=== PATIENT | female | born 1935 | race African-American/Black ===

== ENCOUNTER 2017-05-09 13:38 | Emergency (ER) | payer OTHER ==
[~2017-05-09] VITALS: Ht 165.1 cm; Wt 60.0 kg
[~2017-05-09 13:38] MED LIST: ASPI-785; IBUP100T20; METF500T
[2017-05-09] MEDS ORDERED: ACETAMINOPHEN 500MG TABLET PO ONE (18:45)
[2017-05-09 21:03] VITALS: BP 130/84
== END 2017-05-09 21:08 | disposition home or self-care (01) ==
LOC: ER 13:38
DX: M25.512 Pain in left shoulder (principal); M25.552 Pain in left hip; E11.9 Type 2 diabetes mellitus without complications; M47.896 Other spondylosis, lumbar region; I10 Essential (primary) hypertension; E78.00 Pure hypercholesterolemia, unspecified; Z88.0 Allergy status to penicillin; Z88.6 Allergy status to analgesic agent; V49.49XA Driver injured in collision with other motor vehicles in traffic accident, initial encounter; Y93.89 Activity, other specified; Y92.488 Other paved roadways as the place of occurrence of the external cause
CPT/HCPCS: 72100; 73030; 73502; 99284

== ENCOUNTER 2017-11-25 17:31 | Emergency (ER) | payer OTHER ==
[~2017-11-25] VITALS: Ht 160 cm; Wt 70.0 kg
[2017-11-25 17:42] VITALS: BP 143/84
[2017-11-25] MEDS ORDERED: ACETAMINOPHEN 325MG TABLET PO ONE (17:45)
== END 2017-11-25 22:00 | disposition left against medical advice (07) ==
LOC: ER 17:31
DX: M25.522 Pain in left elbow (principal); I10 Essential (primary) hypertension; E11.9 Type 2 diabetes mellitus without complications; Z79.82 Long term (current) use of aspirin; Z88.0 Allergy status to penicillin; Z88.6 Allergy status to analgesic agent; W07.XXXA Fall from chair, initial encounter; Y93.89 Activity, other specified; Y99.8 Other external cause status; Y92.89 Other specified places as the place of occurrence of the external cause; Z98.51 Tubal ligation status
CPT/HCPCS: 99282